=== PATIENT | female | born 1975 | race Caucasian/White ===

== ENCOUNTER 2018-05-17 08:36 | Inpatient (IN) ==
--- NOTE | 2018-05-17 08:48 | Emergency Department Note ---
ED Disposition Clinical Impression: Cellulitis, abdominal wall Disposition: Still a Patient Condition on Discharge: Fair Referrals: Provider,Referral, [Primary Care Provider] - - Critical Care Critical Care Time: No Attestation: On , the high probability of a clinically significant, sudden or life threatening deterioration of the following system(s) required my full and direct attention, intervention and personal management. The time I documented below is in addition to time spent performing reported procedures but includes the following listed in this critical care notation. Medical Decision Making - Delta Inquiry Pt receiving controlled substance: Yes Delta was queried for this patient: No Reason not queried -: Emergent pt cond-no time Risks and benefits of using a controlled substance: were not discussed with pt by me Vital Signs: 05/17/18 08:46 05/17/18 09:34 05/17/18 10:22 Temperature 99.4 F 100.2 F H 100.1 F H Temperature Source Oral Oral Oral Pulse Rate [Left Radial] 109 H 90 88 Respiratory Rate 20 16 16 Blood Pressure [Right Arm] 113/74 110/67 100/52 L Blood Pressure Mean [Right Arm] 87 81 68 Blood Pressure Source [Right Arm] Automatic Cuff Automatic Cuff Blood Pressure Position [Right Arm] Sitting Sitting Sitting 02 Sat by Pulse Oximetry 98 97 98 Oxygen Delivery Method Room Air Room Air Room Air 05/17/18 10:51 Temperature Temperature Source Pulse Rate [Left Radial] 88 Respiratory Rate 16 Blood Pressure [Right Arm] 116/60 Blood Pressure Mean [Right Arm] 78 Blood Pressure Source [Right Arm] Automatic Cuff Blood Pressure Position [Right Arm] Sitting 02 Sat by Pulse Oximetry 98 Oxygen Delivery Method Room Air - Lab Data Lab Results 05/17/18 09:00: WBC 17.7 H, RBC 4.39, Hgb 13.8, Hct 42.9, MCV 97.7, MCH 31.4 H, MCHC 32.1, RDW 14.2, Plt Count 186, MPV 8.8, Neut % (Auto) 84.8 H, Lymph % (Auto) 7.7 L, [place] % (Auto) 5.1, Eos % (Auto) 2.2, Baso % (Auto) 0.2, Neut # (Auto) 15.0 H, Lymph # (Auto) 1.4, [place] # (Auto) 0.9, Eos # (Auto) 0.4, Baso # (Auto) 0.0, Total Counted 100, Neutrophils % (Manual) 87 H, Band Neutrophils % 1.0, Lymphocytes % (Manual) 5 L, Monocytes % (Manual) 4, Eosinophils % (Manual) 3, Platelet Estimate Normal, RBC Morphology Normal 05/17/18 09:00: Sodium 135 L, Potassium 4.0, Chloride 101, Carbon Dioxide 22, Anion Gap 16.0 H, BUN 11, Creatinine 1.00, Estimated Creat Clear 130, Estimated GFR 61, Est GFR ( Amer) 73, Glucose 102, Calcium 8.5, Total Bilirubin 0.9, AST 22, ALT 27, Alkaline Phosphatase 61, Total Protein 7.2, Albumin 3.4, Globulin 3.8 H, Albumin/Globulin Ratio 0.9 L 05/17/18 09:00: Lactate 0.4 05/17/18 09:00: Serum HCG, Qual Negative Result diagrams: 05/17/18 09:00 05/17/18 09:00 Orders (Tests/Meds): ED MEDICATIONS Generic Name Dose Route Start Last Admin Trade Name Freq PRN Reason Stop Dose Admin Vancomycin HCl 2,250 mg/ 250 mls @ 125 mls/hr 05/17/18 09:15 05/17/18 09:15 Sodium Chloride IV 05/17/18 11:14 125 mls/hr ONCE ONE Administration Sodium Chloride 1,000 mls @ 999 mls/hr 05/17/18 11:15 05/17/18 11:06 Sod Chlor 0.9% 1000ml Bag IV 05/17/18 12:15 999 mls/hr .[id number] MARCUS Administration Miscellaneous 1 each 05/17/18 09:00 05/17/18 09:00 Vancomycin Consult Request NOTAPPLIC 05/17/18 20:57 1 each CONSULT PHARMACY MARCUS Administration Sodium Chloride 10 ml 05/17/18 08:56 Saline Flush 10ml Syringe IV 06/16/18 08:55 NEEDED PRN Maintain IV Site Discontinued Medications Generic Name Dose Route Start Last Admin Trade Name Freq PRN Reason Stop Dose Admin Acetaminophen 650 mg 05/17/18 09:35 05/17/18 09:37 Acetaminophen 325mg Tab PO 05/17/18 09:36 650 mg ONCE ONE Administration Iopamidol 75 ml 05/17/18 10:34 05/17/18 10:35 [id number]; 75ml Vial IV 05/17/18 10:35 75 ml ONCE ONE Administration Protocol Morphine Sulfate 4 mg 05/17/18 08:57 05/17/18 09:15 Morphine 4mg/Ml Syringe IV 05/17/18 08:58 4 mg ONCE ONE Administration Morphine Sulfate 4 mg 05/17/18 10:56 05/17/18 11:01 Morphine 4mg/Ml Syringe IV 05/17/18 10:57 4 mg ONCE ONE Administration Ondansetron HCl 4 mg 05/17/18 08:57 05/17/18 09:15 Zofran 4mg/2ml Vial IV 05/17/18 08:58 4 mg ONCE ONE Administration Sodium Chloride 10 ml 05/17/18 10:34 05/17/18 10:35 Rad-Saline Flush 10ml Syringe IV 05/17/18 10:35 10 ml ONCE ONE Administration ORDERS Category Date Time Status Blood Culture Stat Micro 05/17/18 09:00 Received - CT Data CT Scan: Abdomen, Pelvis Time Received: 11:[address] Reviewed: Yes: I have viewed the radiologist's interpretation Findings Narrative: IMPRESSION: Cellulitis of the lower anterior abdominal wall the right extending to the inguinal area. No evidence of abscess Dictated By: Karlos Kothari MD Signed By: <Electronically signed by Karlos Kothari MD in [place]> 05/17/18 1102 - Physician Consults Physician Consulted: Karan Time: 09:00 Reason -: Surgical Eval/Care Comment/Response: In surgery. Nurse requests contact medicine recreation leader to see if they will admit with a consult to Dr. Russo. Additional Consult: Han Time: 10:52 Reason -: Admission Comment/Response: Agrees to admit the patient to the hospital. We discussed the patient's clinical information, including history, exam, laboratory and radiology results and ED course. Per hospital procedure, I will write temporary bridge inpatient orders on the patient. Specific orders requested by the admitting physician: Continue antibiotics, surgical consult General Adult HPI - General Stated complaint: sore on left groin Time Seen by Provider: 05/17/18 08:48 - History of Present Illness HPI narrative: 2-day history of soreness and redness in the right suprapubic area. Patient is not diabetic. No previous similar problems. No vomiting or diarrhea. Low- grade fever. No recent abdominal surgery. Prior history of appendectomy, cholecystectomy, tubal ligation. - Related Data Home Medications Medication Instructions Recorded Confirmed No Known Home Medications 05/17/18 05/17/18 Allergies Allergy/AdvReac Type Severity Reaction Status Date / Time NO KNOWN ALLERGIES Allergy Uncoded 04/19/17 15:29 [facility] History - Hepatitis A Screen Attestation statement:: This patient has been screened for Hepatitis A risk factors. I have reviewed the patient's past medical history: Yes ROS Obtained: Yes All systems reviewed & no additional complaints - Constitutional Constitutional: Reports fever(s) - Gastrointestinal Gastrointestingal: Denies: diarrhea, vomiting - Integumentary/Breasts Skin/Breast: Reports as per HPI Physical Exam - General General appearance: alert, in no apparent distress - Head Head exam: atraumatic, normocephalic - Eye Eye exam: Present: normal appearance, PERRL, EOMI - ENT ENT exam: Present: mucous membranes moist - Neck Neck exam: Present: normal inspection, trachea midline - Chest Chest inspection: Present: normal inspection, symmetric chest wall rise - Respiratory Respiratory exam: Absent: respiratory distress - Cardiovascular Cardiovascular exam: Present: normal rhythm, tachycardia, normal heart sounds - Abdominal Exam Abdominal exam: Present: soft. Absent: distention Comment: Erythema approximately 20 cm in length and 7 cm in width extending from suprapubic midline towards the right iliac crest. There is an indurated area within the erythema that is approximately 15 cm x 5 cm. No fluctuance palpated. Very tender. There is a small superficial appearing furuncle which appears old, exfoliated and healing, at the superior margin of the erythema. - Extremities Exam Extremities exam: Present: normal inspection, full ROM - Neurological Exam Neurological exam: Present: alert, oriented X3 - Psychiatric Psychiatric exam: Present: normal affect, normal mood - Skin Skin exam: Present: warm, dry
[2018-05-17 09:15] LABS: Basophils % 0.2 % (0.1-2.0); Eosinophils # 0.4 K/mm3 (0.0-0.4); Eosinophils % 2.2 % (0.1-12.0); Hematocrit 42.9 % (37.0-47.0); Hemoglobin 13.8 g/dL (12.2-16.2); Lymphocytes # 1.4 K/mm3 (0.7-4.5); Lymphocytes % 7.7 % (10-50); Mean Corpuscular HGB Conc 32.1 g/dL (31.8-35.4); Mean Corpuscular Hemoglobin 31.4 pg (27.0-31.2); Mean Corpuscular Volume 97.7 fl (81-99); Mean Platelet Volume 8.8 fl (7.4-10.4); Monocytes # 0.9 K/mm3 (0.1-1.0); Monocytes % 5.1 % (1.7-9.3); Neutrophils % 84.8 % (37.0-80.0); Platelet Count 186 K/mm3 (142-424); Red Blood Count 4.39 M/mm3 (4.20-5.40); Red Cell Distribution Width 14.2 % (11.5-17.5); White Blood Count 17.7 K/mm3 (4.8-10.8)
[2018-05-17 09:32] LABS: Albumin Level 3.4 gm/dL (3.4-5.0); Albumin/Globulin Ratio 0.9 (1.1-1.8); Bilirubin,Total 0.9 mg/dL (0.2-1.0); Calcium 8.5 mg/dL (8.5-10.1); Globulin 3.8 gm/dl (1.3-3.2); Total Protein,Serum 7.2 gm/dL (6.4-8.2)
[2018-05-17 09:52] LABS: Eosinophils % 3 % (0-3); Lymphocytes % 5 % (10-50); Monocytes % 4 % (2-9); Neutrophils % 87 % (42-76); RBC Morphology Normal; Total Cells Counted 100
--- NOTE | 2018-05-17 12:01 | History & Physical Report ---
*Admission Date: 05/17/18 <Lis Santiago 05/17/18 12:12> *Chief complaint: skin infection <Lis Santiago 05/17/18 12:12> *History of present illness: Ms. Moy is a 42-year-old relatively healthy female who noticed what she thought was a small boil on her right lower abdomen yesterday. She states there was some surrounding redness which doubled in size in 1 day, therefore she presented to the emergency room for evaluation. She states the whole right lower abdomen is very tender and the pain extends into her right groin. She was evaluated in the emergency room and was admitted and started on IV vancomycin with a surgical consult. <Lis Santiago 05/17/18 12:12> [facility] History I have reviewed the patient's past medical history: Yes <Lis Santiago 05/17/18 12:12> Medical History: Denies:: Coronary Artery Disease, Diabetes Mellitus Type 2, Hyperlipidemia, Hypertension <Lis Santiago 05/17/18 12:12> Have you ever received a pneumonia vaccine?: No <Lis Santiago 05/17/18 12:12> Have you received a flu vaccine this season?: No <Lis Santiago 05/17/18 12 :12> Other Surgeries: Yes: Appendectomy, Cholecystectomy, Tubal Ligation <Lis Santiago 05/17/18 12:12> - *Social History Smoking Status: Current every day smoker <Lis Santiago 05/17/18 12:12> Tobacco Type: cigarettes <Lis Santiago 05/17/18 12:12> Alcohol Intake: never <Lis Santiago 05/17/18 12:12> Occupational Status: disabled <Lis Santiago 05/17/18 12:12> Travel in the last 8 weeks: None <Lis Santiago 05/17/18 12:12> - Psychiatric History Expresses thoughts of harming self/others: None <Lis Santiago 05/17/18 12:12> Suicide Plan Description: No Plan <Lis Santiago 05/17/18 12:12> *Family Hx:: Cancer, Heart Attack, Hypertension <Lis Santiago 05/17/18 12:12> Review of Systems - Constitutional Reports chills, Reports weakness [facility]17[facility] 12[facility]12> - Eyes Denies blurry vision, Denies double vision <[facility] 05/17/18 12:12> - ENT Reports nasal congestion, Denies sore throat <[facility] 05/17/18 12:12> - *Cardiovascular Denies chest pain, Denies shortness of breath, Denies rapid, pounding, or irregular heartbeat <[facility] 05/17/18 12:12> - *Respiratory Denies cough, Denies shortness of breath <[facility] 05/17/18 12:12> - *Gastrointestinal Reports abdominal pain, Reports nausea, Denies loose stools, Denies vomiting <[facility] 05/17/18 12:12> - *Genitourinary Denies difficulty urinating, Denies painful urination <[facility] 05/17/18 12:12> - *Musculoskeletal Reports joint pain (right hip), Reports body aches <[facility] 05/17/18 12:12> - *Neurologic Reports headache(s), Denies dizziness, Denies weakness <[facility] 05/17/18 12:12> Meds Home Medications Medication Instructions Recorded Confirmed Type Clindamycin HCl [Clindamycin HCl 300 mg PO Q8 14 Days #42 cap 05/17/18 Rx 300mg Cap] [facility] 05/17/18 15:35> Allergies Allergy/AdvReac Type Severity Reaction Status Date / Time No Known Allergies Allergy Unverified 05/17/18 11:59 <[facility] 05/17/18 15:35> Exam Vital signs and Labs for Last 24 Hours: Temp Pulse Resp BP Pulse Ox 98.0 F 19 L 16 116/68 99 05/17/18 12:04 05/17/18 12:04 05/17/18 12:04 05/17/18 12:04 05/17/18 12:04 Laboratory Results - last 24 hr 05/17/18 09:00: WBC 17.7 H, RBC 4.39, Hgb 13.8, Hct 42.9, MCV 97.7, MCH 31.4 H, MCHC 32.1, RDW 14.2, Plt Count 186, MPV 8.8, Neut % (Auto) 84.8 H, Lymph % (Auto) 7.7 L, [place] % (Auto) 5.1, Eos % (Auto) 2.2, Baso % (Auto) 0.2, Neut # (Auto) 15.0 H, Lymph # (Auto) 1.4, [place] # (Auto) 0.9, Eos # (Auto) 0.4, Baso # (Auto) 0.0, Total Counted 100, Neutrophils % (Manual) 87 H, Band Neutrophils % 1.0, Lymphocytes % (Manual) 5 L, Monocytes % (Manual) 4, Eosinophils % (Manual) 3, Platelet Estimate Normal, RBC Morphology Normal 05/17/18 09:00: Sodium 135 L, Potassium 4.0, Chloride 101, Carbon Dioxide 22, Anion Gap 16.0 H, BUN 11, Creatinine 1.00, Estimated Creat Clear 130, Estimated GFR 61, Est GFR ( Amer) 73, Glucose 102, Calcium 8.5, Total Bilirubin 0.9, AST 22, ALT 27, Alkaline Phosphatase 61, Total Protein 7.2, Albumin 3.4, Globulin 3.8 H, Albumin/Globulin Ratio 0.9 L 05/17/18 09:00: Lactate 0.4 05/17/18 09:00: Serum HCG, Qual Negative <Sound,Monica - 05/17/18 15:35> Temp Pulse Resp BP Pulse Ox 100 F H 88 16 110/65 98 05/17/18 11:38 05/17/18 11:38 05/17/18 11:38 05/17/18 11:38 05/17/18 10:51 Laboratory Results - last 24 hr 05/17/18 09:00: WBC 17.7 H, RBC 4.39, Hgb 13.8, Hct 42.9, MCV 97.7, MCH 31.4 H, MCHC 32.1, RDW 14.2, Plt Count 186, MPV 8.8, Neut % (Auto) 84.8 H, Lymph % (Auto) 7.7 L, [place] % (Auto) 5.1, Eos % (Auto) 2.2, Baso % (Auto) 0.2, Neut # (Auto) 15.0 H, Lymph # (Auto) 1.4, [place] # (Auto) 0.9, Eos # (Auto) 0.4, Baso # (Auto) 0.0, Total Counted 100, Neutrophils % (Manual) 87 H, Band Neutrophils % 1.0, Lymphocytes % (Manual) 5 L, Monocytes % (Manual) 4, Eosinophils % (Manual) 3, Platelet Estimate Normal, RBC Morphology Normal 05/17/18 09:00: Sodium 135 L, Potassium 4.0, Chloride 101, Carbon Dioxide 22, Anion Gap 16.0 H, BUN 11, Creatinine 1.00, Estimated Creat Clear 130, Estimated GFR 61, Est GFR ( Amer) 73, Glucose 102, Calcium 8.5, Total Bilirubin 0.9, AST 22, ALT 27, Alkaline Phosphatase 61, Total Protein 7.2, Albumin 3.4, Globulin 3.8 H, Albumin/Globulin Ratio 0.9 L 05/17/18 09:00: Lactate 0.4 05/17/18 09:00: Serum HCG, Qual Negative <Lis Santiago 05/17/18 12:12> I & O for Last 24 hours: Intake & Output 05/15/18 05/16/18 05/17/18 05/18/18 11:59 11:59 11:59 11:59 Intake Total 240 / 240 Balance 240 / 240 Weight 250 lb 255 lb 1 oz <Monica Short 05/17/18 15:35> Intake & Output 05/14/18 05/15/18 05/16/18 05/17/18 11:59 11:59 11:59 11:59 Weight 250 lb <Lis Santiago 05/17/18 12:12> - Constitutional no acute distress <Lis Santiago 05/17/18 12:12> - *Routine HEENT Exam Head: Present: normocephalic <Lis Santiago 05/17/18 12:12> Eye: Present: EOMI, PERRL <Lis Santiago 05/17/18 12:12> ENT: Present: mucous membranes moist <Lis Santiago 05/17/18 12:12> - *Routine Neck Exam Present: supple. Absent: lymphadenopathy <Lis Santiago 05/17/18 12:12> - *Routine Respiratory Exam Present: CTA bilaterally <Lis Santiago 05/17/18 12:12> - *Routine Cardiovascular Exam Present: RRR <Lis Santiago 05/17/18 12:12> - *Routine Abdominal Exam Present: soft, normoactive bowel sounds, tenderness (RLQ) <Lis Santiago 05/17/18 12:12> - *Routine Extremities Exam Absent: cyanosis, clubbing, edema <TitoshahlaLis 05/17/18 12:12> - *Routine Skin Exam Present: erythema (right lower abdomen, the area is warm to the touch and there is a firm area in the center of the erythema, no drainage or fluctuance) <TitoshahlaLis 05/17/18 12:12> - *Routine Neurological Exam Present: alert, oriented X3 <Lis Santiago 05/17/18 12:12> H&P: Result - Impressions Abdominal CT - Cellulitis of the lower anterior abdominal wall the right extending to the inguinal area. No evidence of abscess <PamelaLis 05/17/18 12:12> Assessment and Plan (1) Cellulitis, abdominal wall Current visit: Yes Status: Acute Category: Medical Code(s): L03.311 - Cellulitis of abdominal wall <Lis Santiago 05/17/18 11:57> (1) Cellulitis, abdominal wall Current visit: Yes Status: Acute Category: Medical Code(s): L03.311 - Cellulitis of abdominal wall <HanMonica 05/17/18 15:35> - Assessment and plan all Dx Assessment and Plan for all problems:: will dc home today with PO clindamycin as she has never tried any PO meds for cellulitis. F/u in office with me in a week. <Monica Short 05/17/18 15:35> Patient has been started on vancomycin and pain medication and surgery has been consulted. <Lis Santiago 05/17/18 12:12>
--- NOTE | 2018-05-17 13:16 | Pharmacy Consult Notes ---
- Pharmacy Consult Date: 05/17/18 Time: 13:14 Referring provider: DR. NICOLE Reason for Consult:: VANCOMYCIN DOSING Allergies and ADEs:: Allergies Allergy/AdvReac Type Severity Reaction Status Date / Time No Known Allergies Allergy Unverified 05/17/18 11:59 Home Medications:: Home Medications Medication Instructions Recorded Confirmed Type No Known Home Medications 05/17/18 05/17/18 History Height: 1.68 m Weight: 115.694 kg Laboratory Results:: Laboratory Results - last 24 hr 05/17/18 09:00: WBC 17.7 H, RBC 4.39, Hgb 13.8, Hct 42.9, MCV 97.7, MCH 31.4 H, MCHC 32.1, RDW 14.2, Plt Count 186, MPV 8.8, Neut % (Auto) 84.8 H, Lymph % (Auto) 7.7 L, [place] % (Auto) 5.1, Eos % (Auto) 2.2, Baso % (Auto) 0.2, Neut # (Auto) 15.0 H, Lymph # (Auto) 1.4, [place] # (Auto) 0.9, Eos # (Auto) 0.4, Baso # (Auto) 0.0, Total Counted 100, Neutrophils % (Manual) 87 H, Band Neutrophils % 1.0, Lymphocytes % (Manual) 5 L, Monocytes % (Manual) 4, Eosinophils % (Manual) 3, Platelet Estimate Normal, RBC Morphology Normal 05/17/18 09:00: Sodium 135 L, Potassium 4.0, Chloride 101, Carbon Dioxide 22, Anion Gap 16.0 H, BUN 11, Creatinine 1.00, Estimated Creat Clear 130, Estimated GFR 61, Est GFR ( Amer) 73, Glucose 102, Calcium 8.5, Total Bilirubin 0.9, AST 22, ALT 27, Alkaline Phosphatase 61, Total Protein 7.2, Albumin 3.4, Globulin 3.8 H, Albumin/Globulin Ratio 0.9 L 05/17/18 09:00: Lactate 0.4 05/17/18 09:00: Serum HCG, Qual Negative Medical History: Denies:: Coronary Artery Disease, Diabetes Mellitus Type 1, Diabetes Mellitus Type 2, Hyperlipidemia, Hypertension Assessment and Plan (1) Cellulitis, abdominal wall Current visit: Yes Status: Acute Category: Medical Code(s): L03.311 - Cellulitis of abdominal wall - Assessment and plan all Dx Assessment and Plan for all problems:: BASED ON PATIENT FACTORS, RECOMMEND VANCOMYCIN 2250 MG IV ONCE, FOLLOWED BY VANCOMYCIN 2 GM IV Q12H. PHARMACY WILL FOLLOW DAILY AND ADJUST APPROPRIATE.
--- NOTE | 2018-05-17 15:52 | Consult Report ---
*Admission Date: 05/17/18 *Chief complaint: Cellulitis *History of present illness: This is a 42-year-old female seen in consultation from the service of Dr. Lanier for evaluation regarding cellulitis of the right lower quadrant/inguinal region. Please see forwarded copy of HPI from admission H&P below: Ms. Moy is a 42-year-old relatively healthy female who noticed what she thought was a small boil on her right lower abdomen yesterday. She states there was some surrounding redness which doubled in size in 1 day, therefore she presented to the emergency room for evaluation. She states the whole right lower abdomen is very tender and the pain extends into her right groin. She was evaluated in the emergency room and was admitted and started on IV vancomycin with a surgical consult. Review of Systems - Constitutional Denies chills - Eyes Denies change in vision - *Cardiovascular Denies chest pain - *Respiratory Denies cough - *Gastrointestinal Denies abdominal pain - *Neurologic Reports headache(s), Denies dizziness, Denies weakness - Hematologic/Lymphatic Denies easy bleeding [facility] History Medical History: Denies:: Coronary Artery Disease, Diabetes Mellitus Type 1, Diabetes Mellitus Type 2, Hyperlipidemia, Hypertension Have you ever received a pneumonia vaccine?: No Have you received a flu vaccine this season?: No Other Surgeries: Yes: Appendectomy, Cholecystectomy, Tubal Ligation - *Social History Educational Level: Completed High School Smoking Status: Current every day smoker Tobacco Type: cigarettes # Packs/Day (cigarettes): 1 Alcohol Intake: never Occupational Status: disabled Housing: house Household Members: significant other Travel in the last 8 weeks: None - Psychiatric History Expresses thoughts of harming self/others: None Suicide Plan Description: No Plan *Family Hx:: Cancer, Heart Attack, Hypertension Meds Home Medications Medication Instructions Recorded Confirmed Type Clindamycin HCl [Clindamycin HCl 300 mg PO Q8 14 Days #42 cap 05/17/18 Rx 300mg Cap] Allergies Allergy/AdvReac Type Severity Reaction Status Date / Time No Known Allergies Allergy Unverified 05/17/18 11:59 Exam Vital signs and Labs for Last 24 Hours: Temp Pulse Resp BP Pulse Ox 99.7 F H 86 18 98/60 L 96 05/17/18 15:43 05/17/18 15:43 05/17/18 15:43 05/17/18 15:43 05/17/18 15:43 Laboratory Results - last 24 hr 05/17/18 09:00: WBC 17.7 H, RBC 4.39, Hgb 13.8, Hct 42.9, MCV 97.7, MCH 31.4 H, MCHC 32.1, RDW 14.2, Plt Count 186, MPV 8.8, Neut % (Auto) 84.8 H, Lymph % (Auto) 7.7 L, [place] % (Auto) 5.1, Eos % (Auto) 2.2, Baso % (Auto) 0.2, Neut # (Auto) 15.0 H, Lymph # (Auto) 1.4, [place] # (Auto) 0.9, Eos # (Auto) 0.4, Baso # (Auto) 0.0, Total Counted 100, Neutrophils % (Manual) 87 H, Band Neutrophils % 1.0, Lymphocytes % (Manual) 5 L, Monocytes % (Manual) 4, Eosinophils % (Manual) 3, Platelet Estimate Normal, RBC Morphology Normal 05/17/18 09:00: Sodium 135 L, Potassium 4.0, Chloride 101, Carbon Dioxide 22, Anion Gap 16.0 H, BUN 11, Creatinine 1.00, Estimated Creat Clear 130, Estimated GFR 61, Est GFR ( Amer) 73, Glucose 102, Calcium 8.5, Total Bilirubin 0.9, AST 22, ALT 27, Alkaline Phosphatase 61, Total Protein 7.2, Albumin 3.4, Globulin 3.8 H, Albumin/Globulin Ratio 0.9 L 05/17/18 09:00: Lactate 0.4 05/17/18 09:00: Serum HCG, Qual Negative I & O for Last 24 hours: Intake & Output 05/15/18 05/16/18 05/17/18 05/18/18 11:59 11:59 11:59 11:59 Intake Total 240 / 240 Balance 240 / 240 Weight 250 lb 255 lb 1 oz - Constitutional no acute distress - *Routine Respiratory Exam Absent: respiratory distress - *Routine Cardiovascular Exam Present: RRR - *Routine Abdominal Exam Present: soft Comments: Mild to moderate induration with surrounding cellulitic blush in right lower quadrant/inguinal region. No fluctuance. Results - Labs 05/17/18 09:00 05/17/18 09:00 Laboratory Results - last 24 hr 05/17/18 09:00: WBC 17.7 H, RBC 4.39, Hgb 13.8, Hct 42.9, MCV 97.7, MCH 31.4 H, MCHC 32.1, RDW 14.2, Plt Count 186, MPV 8.8, Neut % (Auto) 84.8 H, Lymph % (Auto) 7.7 L, [place] % (Auto) 5.1, Eos % (Auto) 2.2, Baso % (Auto) 0.2, Neut # (Auto) 15.0 H, Lymph # (Auto) 1.4, [place] # (Auto) 0.9, Eos # (Auto) 0.4, Baso # (Auto) 0.0, Total Counted 100, Neutrophils % (Manual) 87 H, Band Neutrophils % 1.0, Lymphocytes % (Manual) 5 L, Monocytes % (Manual) 4, Eosinophils % (Manual) 3, Platelet Estimate Normal, RBC Morphology Normal 05/17/18 09:00: Sodium 135 L, Potassium 4.0, Chloride 101, Carbon Dioxide 22, Anion Gap 16.0 H, BUN 11, Creatinine 1.00, Estimated Creat Clear 130, Estimated GFR 61, Est GFR ( Amer) 73, Glucose 102, Calcium 8.5, Total Bilirubin 0.9, AST 22, ALT 27, Alkaline Phosphatase 61, Total Protein 7.2, Albumin 3.4, Globulin 3.8 H, Albumin/Globulin Ratio 0.9 L 05/17/18 09:00: Lactate 0.4 05/17/18 09:00: Serum HCG, Qual Negative - Imaging CT scan - abdomen: report reviewed, image reviewed CT scan - pelvis: report reviewed, image reviewed Assessment and Plan (1) Cellulitis, abdominal wall Current visit: Yes Status: Acute Category: Medical Code(s): L03.311 - Cellulitis of abdominal wall Currently without abscess. Antibiotics as per primary service Close outpatient follow-up (may require incision and drainage if area develops into "true abscess" or if she does not continue to improve)
--- NOTE | 2018-05-18 22:14 | Discharge Summary ---
General - General Admission date:: 05/17/18 Discharge date: 05/17/18 HPI HPI: Ms. Moy is a 42-year-old relatively healthy female who noticed what she thought was a small boil on her right lower abdomen yesterday. She states there was some surrounding redness which doubled in size in 1 day, therefore she presented to the emergency room for evaluation. She states the whole right lower abdomen is very tender and the pain extends into her right groin. She was evaluated in the emergency room and was admitted and started on IV vancomycin with a surgical consult. Hospital Course Hospital Course: The patient had an abdominal CT showing cellulitis but no abscess. She was seen by Dr. Russo who felt nothing surgical needed to be done. She would need close follow-up to make sure the cellulitis did not develop into an abscess. The patient was stable to be discharged home on p.o. clindamycin and she will follow-up in the office [facility] in 1 week. Objective Vital signs: Temp Pulse Resp BP Pulse Ox 99.7 F H 86 18 98/60 L 96 05/17/18 15:43 05/17/18 15:43 05/17/18 15:43 05/17/18 15:43 05/17/18 15:43 Narrative: - Constitutional no acute distress - *Routine HEENT Exam Head: Present: normocephalic Eye: Present: EOMI, PERRL ENT: Present: mucous membranes moist - *Routine Neck Exam Present: supple. Absent: lymphadenopathy - *Routine Respiratory Exam Present: CTA bilaterally - *Routine Cardiovascular Exam Present: RRR - *Routine Abdominal Exam Present: soft, normoactive bowel sounds, tenderness (RLQ) - *Routine Extremities Exam Absent: cyanosis, clubbing, edema - *Routine Skin Exam Present: erythema (right lower abdomen, the area is warm to the touch and there is a firm area in the center of the erythema, no drainage or fluctuance) - *Routine Neurological Exam Present: alert, oriented X3 DS: Diagnosis - Discharge Diagnosis (1) Cellulitis, abdominal wall Status: Acute Discharge Plan - Patient Discharge Instructions ACTIVITY: Continue current activity DIET: continue same diet Patient Instructions: DI for Cellulitis -- Adult - Follow up Plan Follow up with: Monica Short MD [Staff Physician] - 1 week Michael Russo MD [Staff Physician] - 05/23/18 Disposition: Home, Self-Detention Medications: Home Medications Medication Instructions Recorded Confirmed Type Clindamycin HCl [Clindamycin HCl 300 mg PO Q8 14 Days #42 cap 05/17/18 Rx 300mg Cap] Prescriptions/Medication Reconciliation: New Clindamycin HCl [Clindamycin HCl 300mg Cap] 300 mg PO Q8 14 Days #42 cap
== END 2018-05-17 16:28 | disposition home or self-care (01) | DRG 603 ==
LOC: ER 08:36 → 2ND 11:08
PROVIDERS: ADMIT Emergency Medicine; ATTEND Emergency Medicine
CPT/HCPCS: 36415; 74177; 80053; 83605; 84703; 85007; 85025; 87040; 96365; 96367; 96375; 99284; J2405; J3370; Q9967

== ENCOUNTER → 2018-05-24 10:43 | Outpatient (CLI) | payer MEDICARE, SELFPAY ==
[2018-05-24 11:03] LABS: Urine Pregnancy, HCG Qual. Negative (Negative)
== END ==
PROVIDERS: Visit Provider Surgery
DX: L02.211 Cutaneous abscess of abdominal wall (principal)
CPT/HCPCS: 81025